=== PATIENT | male | born 1945 | race Caucasian/White ===

== ENCOUNTER 2023-02-24 08:47 | Day surgery (SDC) | payer MEDICARE, OTHER, SELFPAY ==
[2023-02-24 09:13] VITALS: BP 134/64; PULSE 59; RESP 16; TEMP 36.4; O2SAT 97
[2023-02-24] MEDS: Tropicam./Phenyleph. (1/2.5%) 5 ML BTL OD ×3 (09:17→09:35)
--- NOTE | 2023-02-24 09:34 | ANES.PREOP_ITS ---
General Info Date of Service Date Performed: 02/24/23 Height: 5 ft 10 in Weight: 107.9 kg Body Mass Index (BMI): 34.1 Surgical Procedure: Operation Date: 02/24/23 11:40 Proposed Procedure Side Surgeon p Cataract Extraction with IOL Implant Right Juan Diego Saucedo MD Meds Allergies and Home Medications Allergies Allergy/AdvReac Type Severity Reaction Status Date / Time venom-honey bee Allergy Severe Swelling/Ed Unverified 02/24/23 09:20 [bee venom (honey bee)] clair erythromycin base AdvReac Unknown nausea Unverified 02/24/23 09:20 [Erythromycin Base] IV contrast dye Allergy Unknown itching Uncoded 02/24/23 09:20 Home Medication Medication Instructions Recorded aspirin 81 mg chewable tablet 81 mg PO DAILY 07/25/14 (Aspirin Low-Strength) atenolol 25 mg tablet 50 mg PO HS 07/25/14 ibuprofen 100 mg tablet 200 mg PO Q4H PRN 07/25/14 lisinopril 5 mg tablet 20 mg PO DAILY 07/25/14 simvastatin 80 mg tablet 80 mg PO DAILY 07/25/14 glyburide 5 mg tablet 2 tab PO DAILY 08/26/14 naproxen 500 mg tablet 1 tab PO BID PRN 08/26/14 clopidogrel 75 mg tablet 75 mg PO HS 02/20/23 insulin glargine 100 unit/mL (3 24 unit subcut DIRECTED 02/20/23 mL) subcutaneous pen (Lantus Solostar U-100 Insulin) metformin 500 mg tablet 1,000 mg PO HS 02/20/23 nifedipine 30 mg tablet,extended 30 mg PO HS 02/20/23 release 24 hr isosorbide mononitrate 60 mg 60 mg PO DAILY 02/21/23 tablet,extended release 24 hr Current Visit Medications: Current Medications Generic Name Dose Route Start Last Admin Trade Name Freq PRN Reason Stop Dose Admin Acetaminophen 1,000 mg 02/24/23 06:00 Acetaminophen 500 Mg Tab PO Q4H PRN PRN Miscellaneous Medication 0 ml 02/24/23 06:00 02/24/23 09:26 Tropicam./Phenyleph. (1/2.5%) 5 Ml Btl OD 1 drp DIRECTED [facility] Administration Miscellaneous Medication 0 ml 02/24/23 06:00 Prednisolone 1%, Moxifloxacin 0.5%, Nepafenac 0.1% 5ml Btl OD DIRECTED [facility] Tetracaine HCl 0 ml 02/24/23 06:00 Tetracaine 0.5% 4 Ml Btl OD DIRECTED [facility] Medical History Medical History Atherosclerosis of [place] coronary artery Cataract Coronary arteriosclerosis DJD (degenerative joint disease), multiple sites Foot pain HLD (hyperlipidemia) HTN (hypertension) Idiopathic osteoarthritis Insomnia Metabolic syndrome X Metatarsalgia Neuropathy IRLANDA (obstructive sleep apnea) PAD (peripheral artery disease) Senile hyperkeratosis Stiffness of joints of both hands Toxic effect of venom Type 2 diabetes mellitus Surgical History Surgical History H/O umbilical hernia repair History of arthroplasty of left shoulder History of heart artery stent x6 History of lumbar spinal fusion History of spinal fusion History of total replacement of both shoulder joints Hx of foot surgery 11/2022 S/P insertion of iliac artery stent x2 S/P TKR (total knee replacement) Tobacco Smoking/Tobacco Use Status: Former Tobacco Use Alcohol Alcohol Intake: current Alcohol intake frequency: 0-2 drinks per day Alcohol type: hard liquor Substance Use Substance use: Never Substance use type: does not use Vital Signs and Lab Results Vital Signs Most Recent Vital Signs in EMR: Most Recent Vital Signs Temp Pulse Resp BP Pulse Ox 36.4 C L 59 L 16 134/64 97 02/24/23 09:13 02/24/23 09:13 02/24/23 09:13 02/24/23 09:13 02/24/23 09:13 Point of Care Results Point of Care Results: Finger Stick Blood Glucose 134 02/24/23 09:21 Lab Results Blood Type / Crossmatch: No Data to Display Complete Blood Count: No Data to Display Complete Metabolic Panel: No Data to Display Liver Function Panel: No Data to Display Coagulation Panel: No Data to Display Cardiac Panel: No Data to Display Arterial Blood Gas: No Data to Display Venous Blood Gas: No Data to Display Pancreas Panel: No Data to Display Thyroid Panel: No Data to Display Infectious Disease: No Data to Display Blood Cultures: No Data to Display Toxicology Panel: No Data to Display Imaging and Studies Imaging and Studies Study information below may be from another EMR and interpreted by another provider. Please see original notes in EMR for more complete details. Stress Test Summary: 09/11/22 Stress ECG negative, see full report in EMR Anesthesia Assessment and Plan Anesthesia History Personal History: No History of Anesthesia Complications Family History: No Family History of Anesthesia Complications Exercise Tolerance Exercise Tolerance: Metabolic Equivalents<4 Pertinent Negatives Pertinent Negatives: No Major Cardiovascular Symptoms or Complaints, No Major Pulmonary Symptoms or Complaints and No History of CVA/TIA Cardiac & Pulmonary Exam Cardiac Exam: Normal S1/S2 Heart Sounds Pulmonary Exam: Clear Bilateral Breath Sounds Implantable Cardiac Device Does patient have a Pacemaker or an ICD?: No Airway Exam Known Difficult Airway: No Mallampati Class: 4 Mouth Opening: Normal (> 3cm) Thyromental Distance: Greater than 3 cm Neck Range of Motion: Full ROM Neck Circumference: Normal Teeth Condition: Normal Dentition ASA Classification ASA Score: ASA 3 Emergency Case?: No NPO Status NPO Status: NPO Clears >2 hours, Solids >8 hours Anesthesia Plan Resuscitation Status: Full Code Anesthesia Technique: MAC Anesthesia Airway Planned: Natural Airway Monitors Used: Standard Monitors
[2023-02-24 09:57] VITALS: BMI 34.1
[2023-02-24] MEDS: Tetracaine 0.5% 4 ML BTL OD (10:09)
[2023-02-24] MEDS: Balanced Salt Soln.-PLUS 500 ML BAG (10:18)
[2023-02-24] MEDS: Lidocaine 1% Pres-Free 5 ML VIAL (10:18)
[2023-02-24] MEDS: Duovisc Viscoelastic System EACH 1 EACH (10:19)
[2023-02-24] MEDS: Phenylephrine/Lidocaine (15/10) MG/ML 1 ML VIAL (10:20)
[2023-02-24] MEDS: Povidone-Iodine Ophth 30 ML BTL (10:20)
[2023-02-24 10:38] VITALS: BP 104/64; PULSE 59; RESP 16; TEMP 36.2; O2SAT 97
--- NOTE | 2023-02-24 10:38 | PDOC.DSDIS_ITS ---
Date of service: 02/24/23 Time of Service: 10:38 Discharge Plan Disposition Patient Disposition: Home Discharge Details Attending Provider: Juan Diego Saucedo Primary Care Provider: Gopi Bolden [place] Meds and New Rx's Prescriptions: No Action atenolol 25 MG tablet 50 mg PO HS simvastatin 80 MG tablet 80 mg PO DAILY ibuprofen 100 MG tablet 200 mg PO Q4H PRN aspirin [Aspirin Low-Strength] 81 MG tablet,chewable 81 mg PO DAILY lisinopril 5 MG tablet 20 mg PO DAILY glyburide 5 MG tablet 2 tab PO DAILY naproxen 500 MG tablet 1 tab PO BID PRN nifedipine 30 mg Tablet Extended Release 24hr 30 mg PO HS metformin 500 mg Tablet 1,000 mg PO HS clopidogrel 75 mg Tablet 75 mg PO HS insulin glargine [Lantus Solostar U-100 Insulin] 100 unit/mL (3 mL) Insulin Pen 24 unit SUBCUT DIRECTED isosorbide mononitrate 60 mg Tablet Extended Release 24 Hr 60 mg PO DAILY Discharge Instructions Stand Alone Forms: Post-op Topical Cataract, Darryl [place] ([facility]) Discharge Orders Discharge Orders: Discharge Order (Routine); Ordered 02/24/23 Ordered By: Juan Diego Saucedo DS: Diagnosis Discharge Diagnosis (1) Nuclear age-related cataract, right eye: Status: Resolved (2) Posterior subcapsular age-related cataract, right eye: Status: Resolved
--- NOTE | 2023-02-24 10:39 | ROE_ITS ---
Date of service: 02/24/23 Time of Service: 10:40 Operative Note Operative Note DATE OF PROCEDURE: 02/24/23 PRE-OP DIAGNOSIS: Nuclear/posterior subcapsular cataract, right eye POST-OP DIAGNOSIS: same PROCEDURE: Cataract extraction using phacoemulsification with intraocular lens implant, right eye SURGEON: Juan Diego Saucedo ANESTHESIA TYPE: Local By Surgeon and MAC Refer to Anesthesia Record ESTIMATED BLOOD LOSS: 0 PATHOLOGY: none sent COMPLICATIONS: None Patient was transported to: same day Patient's condition: stable Implants: Stefan & Stefan Tecnis Eyhance [id number] Indications: Progressive visual loss due to cataract, right eye Procedure Description: CATARACT SURGERY OPERATIVE REPORT PREOPERATIVE DIAGNOSIS: 1. Nuclear/posterior subcapsular cataract, right eye POSTOPERATIVE DIAGNOSIS: Same OPERATION: 1. Cataract extraction using phacoemulsification with posterior chamber intraocular lens implant, right eye. IOL: IOL Satellite Project Site Monitor/Model: Stefan & Stefan Tecnis Eyhance DIB00 IOL Power: + 20.0 diopters IOL Serial Number: [id number] Optic Diameter: 6.0mm Haptic/Overall Diameter: 13.0mm PHACO INFO: Tapan Gogii Gamesurion Vision System with OZil and Active Fluidics Cumulative Dispersed Energy (CDE): 10.88 seconds SURGEON: Juan Diego Saucedo MD, MAMTA ANESTHESIA: Monitored Anesthesia Care (MAC), with local sub-tenon's anesthetic infiltration COMPLICATIONS: None SPECIMENS: None INDICATIONS FOR PROCEDURE: The patient is a 78-year-old male with history of diminished visual acuity in his right eye secondary to the development of nuclear/posterior subcapsular cataract. He is significantly symptomatic that he desires cataract surgery and attempt to improve and maximize his vision. The option of cataract surgery was offered to the patient and he wished to proceed. PROCEDURE: The correct surgical eye was identified and marked as the right eye and the pupil was dilated in the preoperative area using mydriatics and cycloplegics. The dilated pupil size was 6.0 mm. Oral sedation was administered in the form of an Imprimis MKO Melt (midazolam 3mg/ketamine 25mg/ondansetron 2mg). The patient was brought to the operating room where cardiopulmonary monitoring was instituted and surgical time-out was performed, confirming the correct operative eye and IOL power. Topical anesthesia was administered and ophthalmic povidone-iodine 5% was instilled into the conjunctival fornices. Lidocaine gel was applied to the cornea and the lukas-ocular area was prepped with Betadine 10% solution and draped in the usual sterile fashion for intraocular surgery, including an aperture drape. A Tegaderm transparent film dressing was cut in half and used to cover the lashes and lid margins. Care was taken to sequester the lashes and lid margins under the Tegaderm dressing. A lid speculum was placed between the lids of the operative eye and the Tapan LuxOR Revalia operating microscope was maneuvered into position. Amanda scissors were then used to make a conjunctival buttonhole approximately 6mm posterior to the limbus in the inferonasal quadrant. Blunt dissection was carried out to expose bare sclera, and a blunt-tipped sub-tenon?s anesthesia cannula was introduced and passed posteriorly along the globe where non- preserved plain lidocaine was injected into posterior sub-Tenon?s space. A sideport knife was used to make a paracentesis port inferotemporally. Intraocular phenylephrine/lidocaine was injected into the anterior chamber. The anterior chamber was filled with viscoelastic. A keratome knife was used to construct a 2-plane near-clear corneal tunnel extending 2.0mm into clear cornea superiortemporally. A flap was raised on the anterior capsule and capsulorhexis forceps were used to complete a continuous curvilinear capsulorhexis of 5.0 mm. Balanced salt solution was then used to perform cortical cleaving hydrodissection and nuclear hydrodelineation until the lens could be freely rotated within the capsular bag. The lens nucleus was then disassembled and removed within the capsular bag and iris plane using phacoemulsification. Residual cortical material was removed using the I/A handpiece. The posterior capsule was carefully polished to remove as much residual lens epithelial cells as safely possible. The capsular bag was then inflated and the anterior chamber deepened with viscoelastic. The lens implant described above was inserted into the capsular bag using the Stefan and Vangie Simplicity pre-loaded injector. A Kuglen hook was used to dial the IOL into position. Residual viscoelastic was then removed first from posterior to the IOL, then from the anterior chamber using the I/A handpiece. The lens implant was noted to center nicely within the capsular bag. The incisions were stromally hydrated, and the anterior chamber was reformed using BSS. Then 0.5cc of moxifloxacin 1.0mg/ml were injected into the capsular bag and anterior chamber. The incisions were checked with a Weck spear and found to be secure. Several drops of ophthalmic povidone-iodine 5% were then applied to the eye followed by two drops of Imprimis combination prednisolone/moxifloxacin/nepafenac solution. The drapes were removed and a clear plastic protective eye shield was placed over the eye. The patient was then returned to Same Day Surgery in stable condition.
--- NOTE | 2023-02-24 11:05 | W.ANESPOSTOP ---
Postoperative Evaluation Date, Time and Location Date Performed: 02/24/23 Time Performed: 10:38 Patient Location: Day Surgery Unit Vital Signs Most Recent Imported Vital Signs: Most Recent Vital Signs Temp Pulse Resp BP Pulse Ox 36.2 C L 59 L 16 104/64 97 02/24/23 10:38 02/24/23 10:38 02/24/23 10:38 02/24/23 10:38 02/24/23 10:38 Pain Score Most Recent Pain Score: Most Recent Pain Score Pain Level 0 02/24/23 10:38 Assessment Mental Status: Awake (Alert & Oriented to Patient Baseline) Airway and Respiratory Function: Patent airway with normal (patient baseline) respiratory exam Cardiovascular Function: Hemodynamically Stable Hydration Status: Adequately Hydrated Nausea & Vomiting: No Nausea or Vomiting Pain: Pt. Denies Any Pain Peripheral Nerve Block: Patient did not receive a nerve block
[2023-02-24 11:10] VITALS: BP 110/55; PULSE 66; RESP 16; TEMP 36.2; O2SAT 96
== END 2023-02-24 11:20 | disposition home or self-care (01) ==
LOC: SUR 08:47
PROVIDERS: PCP Neuromusculoskeletal Medicine & OMM; Visit Provider Ophthalmology
PROC: (CPT 66984; principal; 2023-02-24 11:30)
DX: H25.11 Age-related nuclear cataract, right eye (principal); H25.041 Posterior subcapsular polar age-related cataract, right eye; I10 Essential (primary) hypertension; G47.33 Obstructive sleep apnea (adult) (pediatric)
CPT/HCPCS: 66984; V2632

== ENCOUNTER 2023-03-10 09:31 | Day surgery (SDC) | payer MEDICARE, OTHER, SELFPAY ==
--- NOTE | 2023-03-10 06:49 | W.ANESPRE ---
General Info Date of Service Date Performed: 03/10/23 Height: 5 ft 10 in Weight: 107.9 kg Body Mass Index (BMI): 34.1 Surgical Procedure: Operation Date: 03/10/23 12:40 Proposed Procedure Side Surgeon p Cataract Extraction with IOL Implant Left Juan Diego Saucedo MD Meds Allergies and Home Medications Allergies Allergy/AdvReac Type Severity Reaction Status Date / Time venom-honey bee Allergy Severe Swelling/Ed Unverified 03/07/23 10:19 [bee venom (honey bee)] clair erythromycin base AdvReac Unknown nausea Unverified 03/07/23 10:19 [Erythromycin Base] IV contrast dye Allergy Unknown itching Uncoded 03/07/23 10:19 Home Medication Medication Instructions Recorded aspirin 81 mg chewable tablet 81 mg PO DAILY 07/25/14 (Aspirin Low-Strength) atenolol 25 mg tablet 50 mg PO HS 07/25/14 ibuprofen 100 mg tablet 200 mg PO Q4H PRN 07/25/14 lisinopril 5 mg tablet 20 mg PO DAILY 07/25/14 simvastatin 80 mg tablet 80 mg PO DAILY 07/25/14 glyburide 5 mg tablet 2 tab PO DAILY 08/26/14 naproxen 500 mg tablet 1 tab PO BID PRN 08/26/14 clopidogrel 75 mg tablet 75 mg PO HS 02/20/23 insulin glargine 100 unit/mL (3 24 unit subcut DIRECTED 02/20/23 mL) subcutaneous pen (Lantus Solostar U-100 Insulin) metformin 500 mg tablet 1,000 mg PO HS 02/20/23 nifedipine 30 mg tablet,extended 30 mg PO HS 02/20/23 release 24 hr isosorbide mononitrate 60 mg 60 mg PO DAILY 02/21/23 tablet,extended release 24 hr Current Visit Medications: Current Medications Generic Name Dose Route Start Last Admin Trade Name Freq PRN Reason Stop Dose Admin Acetaminophen 1,000 mg 03/10/23 06:00 Acetaminophen 500 Mg Tab PO Q4H PRN PRN Miscellaneous Medication 0 ml 03/10/23 06:00 Tropicam./Phenyleph. (1/2.5%) 5 Ml Btl OS DIRECTED [facility] Miscellaneous Medication 0 ml 03/10/23 06:00 Prednisolone 1%, Moxifloxacin 0.5%, Nepafenac 0.1% 5ml Btl OS DIRECTED [facility] Tetracaine HCl 0 ml 03/10/23 06:00 Tetracaine 0.5% 4 Ml Btl OS DIRECTED [facility] PFSH Active Problems Active Problems: Problem Status Onset Code Posterior subcapsular age-related cataract of left eye H25.042 Nuclear age-related cataract, left eye H25.12 Posterior subcapsular age-related cataract, right eye H25.041 Nuclear age-related cataract, right eye H25.11 Medical History Medical History (Updated 03/09/23 @ 10:13 by Juan Diego Saucedo MD) Atherosclerosis of [place] coronary artery Cataract Coronary arteriosclerosis DJD (degenerative joint disease), multiple sites Foot pain HLD (hyperlipidemia) HTN (hypertension) Idiopathic osteoarthritis Insomnia Metabolic syndrome X Metatarsalgia Neuropathy IRLANDA (obstructive sleep apnea) PAD (peripheral artery disease) Senile hyperkeratosis Stiffness of joints of both hands Toxic effect of venom Type 2 diabetes mellitus Surgical History Surgical History H/O umbilical hernia repair History of arthroplasty of left shoulder History of heart artery stent x6 History of lumbar spinal fusion History of spinal fusion History of total replacement of both shoulder joints Hx of foot surgery 11/2022 S/P insertion of iliac artery stent x2 S/P TKR (total knee replacement) Tobacco Smoking/Tobacco Use Status: Former Tobacco Use Alcohol Alcohol Intake: current Alcohol intake frequency: 0-2 drinks per day Alcohol type: hard liquor Substance Use Substance use: Never Substance use type: does not use Vital Signs and Lab Results Lab Results Blood Type / Crossmatch: No Data to Display Complete Blood Count: No Data to Display Complete Metabolic Panel: No Data to Display Liver Function Panel: No Data to Display Coagulation Panel: No Data to Display Cardiac Panel: No Data to Display Arterial Blood Gas: No Data to Display Venous Blood Gas: No Data to Display Pancreas Panel: No Data to Display Thyroid Panel: No Data to Display Infectious Disease: No Data to Display Blood Cultures: No Data to Display Toxicology Panel: No Data to Display Imaging and Studies Imaging and Studies Study information below may be from another EMR and interpreted by another provider. Please see original notes in EMR for more complete details. Stress Test Summary: 09/11/22 Stress ECG negative, see full report in EMR Anesthesia Assessment and Plan Anesthesia History Personal History: No History of Anesthesia Complications Family History: No Family History of Anesthesia Complications Exercise Tolerance Exercise Tolerance: Metabolic Equivalents<4 Cardiac & Pulmonary Exam Cardiac Exam: Normal S1/S2 Heart Sounds Pulmonary Exam: Clear Bilateral Breath Sounds Implantable Cardiac Device Does patient have a Pacemaker or an ICD?: No Airway Exam Known Difficult Airway: No Mallampati Class: 4 Mouth Opening: Normal (> 3cm) Thyromental Distance: Greater than 3 cm Neck Range of Motion: Full ROM Neck Circumference: Normal Teeth Condition: Normal Dentition ASA Classification ASA Score: ASA 3 Emergency Case?: No NPO Status NPO Status: NPO Clears >2 hours, Solids >8 hours Anesthesia Plan Resuscitation Status: Full Code Anesthesia Technique: MAC Anesthesia Airway Planned: Natural Airway Monitors Used: Standard Monitors Preoperative Comments:: 78 yo male for repeat cataract. Did have MKO last time. Sig PMHx: HTN, afib, metabolic syndrome, IRLANDA, carotid stenosis, PAD (iliac stents), CAD ([place] 1998. 6 stents), neuropathy, DM2, former smoker, occ EtOH.
[2023-03-10 10:05] VITALS: BP 119/97; PULSE 66; RESP 16; TEMP 36.5; O2SAT 95
[2023-03-10 10:11] VITALS: BMI 34.1
[2023-03-10] MEDS: Tropicam./Phenyleph. (1/2.5%) 5 ML BTL OS ×3 (10:27→10:38)
[2023-03-10] MEDS: Tetracaine 0.5% 4 ML BTL OS (11:26)
[2023-03-10] MEDS: Balanced Salt Soln.-PLUS 500 ML BAG (11:33)
[2023-03-10] MEDS: Lidocaine 1% Pres-Free 5 ML VIAL (11:33)
[2023-03-10] MEDS: Phenylephrine/Lidocaine (15/10) MG/ML 1 ML VIAL (11:34)
[2023-03-10] MEDS: Duovisc Viscoelastic System EACH 1 EACH (11:35)
[2023-03-10] MEDS: Povidone-Iodine Ophth 30 ML BTL (11:35)
[2023-03-10 11:52] VITALS: BP 107/58; PULSE 61; RESP 18; TEMP 36.6; O2SAT 98
--- NOTE | 2023-03-10 11:54 | PDOC.DSDIS_ITS ---
Date of service: 03/10/23 Time of Service: 11:54 Discharge Plan Disposition Patient Disposition: Home Discharge Details Attending Provider: Juan Diego Saucedo Primary Care Provider: Gopi Bolden [place] Meds and New Rx's Prescriptions: No Action atenolol 25 MG tablet 50 mg PO HS simvastatin 80 MG tablet 80 mg PO DAILY aspirin [Aspirin Low-Strength] 81 MG tablet,chewable 81 mg PO DAILY lisinopril 5 MG tablet 20 mg PO DAILY glyburide 5 MG tablet 2 tab PO DAILY naproxen 500 MG tablet 1 tab PO BID PRN nifedipine 30 mg Tablet Extended Release 24hr 30 mg PO HS metformin 500 mg Tablet 1,000 mg PO HS clopidogrel 75 mg Tablet 75 mg PO HS insulin glargine [Lantus Solostar U-100 Insulin] 100 unit/mL (3 mL) Insulin Pen 24 unit SUBCUT DIRECTED isosorbide mononitrate 60 mg Tablet Extended Release 24 Hr 60 mg PO DAILY Discharge Instructions Stand Alone Forms: Post-op Topical Cataract, Darryl [place] ([facility]) Discharge Orders Discharge Orders: Discharge Order (Routine); Ordered 03/10/23 Ordered By: Juan Diego Saucedo DS: Diagnosis Discharge Diagnosis (1) Nuclear age-related cataract, left eye: Status: Resolved (2) Posterior subcapsular age-related cataract of left eye: Status: Resolved
--- NOTE | 2023-03-10 11:55 | ROE_ITS ---
Date of service: 03/10/23 Time of Service: 11:55 Operative Note Operative Note DATE OF PROCEDURE: 03/10/23 PRE-OP DIAGNOSIS: Nuclear/posterior subcapsular cataract, left eye POST-OP DIAGNOSIS: same PROCEDURE: Cataract extraction using phacoemulsification with intraocular lens implant, left eye SURGEON: Juan Diego Saucedo ANESTHESIA TYPE: Local By Surgeon and MAC Refer to Anesthesia Record PATHOLOGY: none sent COMPLICATIONS: None Patient was transported to: same day Patient's condition: stable Implants: Stefan and Stefan Tecnis Eyhance [id number] Indications: Progressive decreased vision due to cataract, left eye Procedure Description: CATARACT SURGERY OPERATIVE REPORT PREOPERATIVE DIAGNOSIS: 1. Nuclear/posterior subcapsular cataract, left eye POSTOPERATIVE DIAGNOSIS: Same OPERATION: 1. Cataract extraction using phacoemulsification with posterior chamber intraocular lens implant, left eye. IOL: IOL Utilization Supervisor/Model: Stefan & Stefan Tecnis Eyhance DIB00 IOL Power: + 20.0 diopters IOL Serial Number: [id number] Optic Diameter: 6.0 mm Haptic/Overall Diameter: 13.0 mm PHACO INFO: [employer] InfoScouturion Vision System with OZil and Active Fluidics Cumulative Dispersed Energy (CDE): 6.88 seconds SURGEON: Juan Diego Saucedo MD, MAMTA ANESTHESIA: Monitored A [facility] (MAC), with local sub-tenon's anesthetic infiltration COMPLICATIONS: None SPECIMENS: None INDICATIONS FOR PROCEDURE: The patient is a 78-year-old gentleman with history of diminished visual acuity in both eyes secondary to the development of symptomatic bilateral cataract. He has already undergone cataract surgery in the right eye and is doing well postoperatively. He now presents for cataract surgery in the left eye. See office notes for detailed information. PROCEDURE: The correct surgical eye was identified and marked as the left eye and the pupil was dilated in the preoperative area using mydriatics and cycloplegics. The dilated pupil size was 6.0 mm. Oral sedation was administered in the form of an Imprimis MKO Melt (midazolam 3mg/ketamine 25mg/ondansetron 2mg). The patient was brought to the operating room where cardiopulmonary monitoring was instituted and surgical time-out was performed, confirming the correct operative eye and IOL power. Topical anesthesia was administered and ophthalmic povidone-iodine 5% was instilled into the conjunctival fornices. Lidocaine gel was applied to the c ornea and the lukas-ocular area was prepped with Betadine 10% solution and draped in the usual sterile fashion for intraocular surgery, including an aperture drape. A Tegaderm transparent film dressing was cut in half and used to cover the lashes and lid margins. Care was taken to sequester the lashes and lid margins under the Tegaderm dressing. A lid speculum was placed between the lids of the operative eye and the [employer] LuxOR Revalia operating microscope was maneuvered into position. Amanda scissors were then used to make a conjunctival buttonhole approximately 6mm posterior to the limbus in the inferonasal quadrant. Blunt dissection was carried out to expose bare sclera, and a blunt-tipped sub-tenon?s anesthesia cannula was introduced and passed posteriorly along the globe where non- preserved plain lidocaine was injected into posterior sub-Tenon?s space. A sideport knife was used to make a paracentesis port superiorly/superiortemporally. Intraocular phenylephrine/lidocaine was injected int the anterior chamber.. The anterior chamber was filled with viscoelastic. A keratome knife was used to construct a 2-plane near-clear corneal tunnel extending 2.0mm into clear cornea temporally. A flap was raised on the anterior capsule and capsulorhexis forceps were used to complete a continuous curvilinear capsulorhexis of 5.5 mm. Balanced salt solution was then used to perform cortical cleaving hydrodissection and nuclear hydrodelineation until the lens could be freely rotated within the capsular bag. The lens nucleus was then disassembled and removed within the capsular bag and iris plane using phacoemulsification. Residual cortical material was removed using the 45-degree angled silicone I/A tip with 0.3mm port. The posterior capsule was carefully polished to remove as much residual lens epithelial cells as safely possible. The capsular bag was then inflated and the anterior chamber deepened with viscoelastic. The lens implant described above was inserted into the capsular bag using the Stefan and Stefan Simplicity pre-loaded injector. . A Kuglen hook was used to dial the IOL into position. Residual viscoelastic was then removed first from posterior to the IOL, then from the anterior chamber using the I/A handpiece. The lens implant was noted to center nicely within the capsular bag. The incisions were stromally hydrated, and the anterior chamber was reformed using BSS. Then 0.5cc of moxifloxacin 1.0mg/ml were injected into the capsular bag and anterior chamber. The incisions were checked with a Weck spear and found to be secure. Several drops of ophthalmic povidone-iodine 5% were then applied to the eye followed by two drops of Imprimis combination prednisolone/moxifloxacin/nepafenac solution. The drapes were removed and a clear plastic protective eye shield was placed over the eye. The patient was then returned to Same Day Surgery in stable condition.
--- NOTE | 2023-03-10 12:07 | W.ANESPOSTOP ---
Postoperative Evaluation Date, Time and Location Date Performed: 03/10/23 Time Performed: 12:07 Patient Location: Day Surgery Unit Vital Signs Most Recent Imported Vital Signs: Most Recent Vital Signs Temp Pulse Resp BP Pulse Ox 36.6 C 61 18 107/58 L 98 03/10/23 11:52 03/10/23 11:52 03/10/23 11:52 03/10/23 11:52 03/10/23 11:52 Pain Score Most Recent Pain Score: Most Recent Pain Score Pain Level 0 03/10/23 11:52 Assessment Mental Status: Awake (Alert & Oriented to Patient Baseline) Airway and Respiratory Function: Patent airway with normal (patient baseline) respiratory exam Cardiovascular Function: Hemodynamically Stable Hydration Status: Adequately Hydrated Nausea & Vomiting: No Nausea or Vomiting Pain: Pt. Denies Any Pain Peripheral Nerve Block: Patient did not receive a nerve block
[2023-03-10 12:17] VITALS: BP 109/63; PULSE 97; RESP 16; TEMP 36.2; O2SAT 95
== END 2023-03-10 12:23 | disposition home or self-care (01) ==
LOC: SUR 09:31
PROVIDERS: PCP Neuromusculoskeletal Medicine & OMM; Visit Provider Ophthalmology
PROC: (CPT 66984; principal; 2023-03-10 12:30)
DX: H25.12 Age-related nuclear cataract, left eye (principal); H25.042 Posterior subcapsular polar age-related cataract, left eye; Z98.41 Cataract extraction status, right eye
CPT/HCPCS: 66984; V2632